=== PATIENT | male | born 1995 | race African-American/Black ===

== ENCOUNTER 2017-06-30 12:37 | Emergency (ER) | payer BC, MEDICAID ==
[2017-06-30 14:12] VITALS: BP 133/81
[2017-06-30 15:04] LABS: APPEARANCE,URINE CLEAR; BILIRUBIN,URINE NEGATIVE (NEGATIVE); COLOR,URINE STRAW; GLUCOSE, URINE NEGATIVE (NEGATIVE); KETONES,URINE NEGATIVE (NEGATIVE); LEUKOCYTE ESTERASE,URINE NEGATIVE (NEGATIVE); NITRITE,URINE NEGATIVE (NEGATIVE); PROTEIN,URINE NEGATIVE (NEGATIVE); URINE SPECIFIC GRAVITY 1.006; UROBILINOGEN,URINE NEGATIVE mg/dL (<2.0)
--- NOTE | 2017-06-30 15:42 | RADIOLOGY REPORT (SQ) ---
EXAM DESCRIPTION: U/S SCROTUM W/DOPPLER COMPLETED DATE/TIME: 06/30/2017 3:31 pm REASON FOR STUDY: left teste pain COMPARISON: None. TECHNIQUE: Static and realtime mendoza scale imaging of the scrotum and testes. Selected color Doppler and spectral images recorded to document blood flow. LIMITATIONS: None. FINDINGS: RIGHT: TESTICLE: Normal size. Normal echotexture. Normal blood flow. No mass. EPIDIDYMIS: Normal. HYDROCELE OR VARICOCELE: No. HERNIA OR EXTRA-TESTICULAR MASS: No. OTHER: No other significant finding. LEFT: TESTICLE: Normal size. Normal echotexture. Normal blood flow. No mass. EPIDIDYMIS: Normal. HYDROCELE OR VARICOCELE: No. HERNIA OR EXTRA-TESTICULAR MASS: No. OTHER: No other significant finding. IMPRESSION: NORMAL SCROTAL ULTRASOUND. NO EVIDENCE OF TESTICULAR MASS OR TORSION. TECHNICAL DOCUMENTATION: JOB ID: [id number] [employer]- All Rights Reserved
--- NOTE | 2017-06-30 16:01 | ER Document Report ---
ED GI/ - General Chief Complaint: Testicular Pain Stated Complaint: GENITAL PAIN Time Seen by Provider: 06/30/17 14:34 Mode of Arrival: Ambulatory Information source: Patient Notes: 21 yo normally healthy, wisdom teeth removed, uncircumscised, appendectomy male with pain and discomfort in left testicle since february, intermittent. Past few weeks has been constant associated with some numbness, the US done made it worse. NO penis problems. Pain does goes do up into the groin some. The testicle is hanging correctly. No injury. Not sexual active. No penis drainage. Ejaculation normal. Holding in the urine makes the pressure worse. No back pain. No hernia. TRAVEL OUTSIDE OF THE [place] IN LAST 30 DAYS: No Past Medical History - General Information source: Patient - Social History Smoking Status: Former Smoker Frequency of alcohol use: None Drug Abuse: None Lives with: Family Family History: Reviewed & Not Pertinent Patient has suicidal ideation: No Patient has homicidal ideation: No - Medical History Medical History: Negative Renal/ Medical History: Denies: Hx Peritoneal Dialysis Past Surgical History: Reports: Hx Appendectomy Review of Systems - Review of Systems Constitutional: No symptoms reported EENT: No symptoms reported Cardiovascular: No symptoms reported Respiratory: No symptoms reported Gastrointestinal: No symptoms reported Genitourinary: No symptoms reported Male Genitourinary: See HPI Musculoskeletal: No symptoms reported Skin: No symptoms reported Hematologic/Lymphatic: No symptoms reported Neurological/Psychological: No symptoms reported Physical Exam - Vital signs Vitals: Temp Pulse Resp BP Pulse Ox 98.3 F 65 15 133/81 H 100 06/30/17 12:58 06/30/17 12:58 06/30/17 12:58 06/30/17 12:58 06/30/17 12:58 Interpretation: Normal - General General appearance: Appears well, Alert - HEENT Head: Normocephalic, Atraumatic Eyes: Normal Pupils: PERRL Neck: Supple - Respiratory Respiratory status: No respiratory distress Chest status: Nontender Breath sounds: Normal Chest palpation: Normal - Cardiovascular Rhythm: Regular Heart sounds: Normal auscultation Murmur: No - Abdominal Inspection: Normal Distension: No distension Bowel sounds: Normal Tenderness: Nontender Organomegaly: No organomegaly - Genitourinary Inspection: Normal Tenderness: Other - tender in the left inquinal canal, no hernia. No: Testicle tender, Epididymis tender Cremasteric reflex: Normal Scrotum: Normal - Back Back: Normal, Nontender - Extremities General upper extremity: Normal inspection, Nontender, Normal color, Normal ROM , Normal temperature General lower extremity: Normal inspection, Nontender, Normal color, Normal ROM , Normal temperature, Normal weight bearing. No: Lakisha's sign - Neurological Neuro grossly intact: Yes Cognition: Normal Orientation: AAOx4 Tee Coma Scale Eye Opening: Spontaneous Carlton Coma Scale Verbal: Oriented Tee Coma Scale Motor: Obeys Commands Tee Coma Scale Total: 15 Speech: Normal Motor strength normal: LUE, RUE, LLE, RLE Sensory: Normal - Psychological Associated symptoms: Normal affect, Normal mood - Skin Skin Temperature: Warm Skin Moisture: Dry Skin Color: Normal Skin irregularity: negative: Rash Course - Re-evaluation Re-evalutation: 06/30/17 16:[address] gates. Send pt to urologist. the US and urine are negative. - Vital Signs Vital signs: Temp Pulse Resp BP Pulse Ox 98.3 F 65 15 133/81 H 100 06/30/17 12:58 06/30/17 12:58 06/30/17 12:58 06/30/17 12:58 06/30/17 12:58 Discharge - Discharge Clinical Impression: Orchitis, left, Left inguinal pain Condition: Good Disposition: HOME, SELF-CARE Instructions: Acetaminophen, Anti-Inflammatory Medication ([facility]), Testicular Pain ([facility]), Warm Packs ([facility]) Additional Instructions: tylenol and motrin for pain warm compress see urologist for follow up to er if worse Prescriptions: Ibuprofen [Motrin 600 mg Tablet] 600 mg PO Q8HP PRN #30 tablet PRN Reason: Referrals: JUAN LEAVITT MD [TANGELA CARDOZO] - Follow up in 1 week
== END 2017-06-30 16:04 | disposition home or self-care (01) ==
LOC: ER 12:37
DX: N45.2 Orchitis (principal); R10.32 Left lower quadrant pain; N50.812 Left testicular pain; R20.0 Anesthesia of skin; Z87.891 Personal history of nicotine dependence
CPT/HCPCS: 76870; 81001; 93976; 99284

== ENCOUNTER → 2017-11-11 | Outpatient (CLI) | payer BC ==
--- NOTE | 2017-11-11 11:00 | RADIOLOGY REPORT (SQ) ---
EXAM DESCRIPTION: HIP LEFT AP/LATERAL COMPLETED DATE/TIME: 11/11/2017 10:49 am REASON FOR STUDY: PAIN IN LEFT HIP M25.552 PAIN IN LEFT HIP COMPARISON: None. NUMBER OF VIEWS: Two views. TECHNIQUE: AP pelvis and additional frog-leg view of the left hip. LIMITATIONS: None. FINDINGS: MINERALIZATION: Normal. PRIMARY HIP: No fracture or dislocation. No worrisome bone lesions. OPPOSITE HIP: No fracture or dislocation. No worrisome bone lesions. PUBIS AND ISCHIUM: No fracture. PELVIS: No fracture. SACRUM: No fracture or dislocation. No worrisome bone lesions. LOWER LUMBAR SPINE: No fracture or dislocation. No worrisome bone lesions. No significant disc disea se. SOFT TISSUES: No findings. OTHER: No other significant finding. IMPRESSION: NEGATIVE STUDY OF THE LEFT HIP AND PELVIS. NO ACUTE POST-TRAUMATIC CHANGES. NO EXPLANAT ION FOR PAIN. TECHNICAL DOCUMENTATION: JOB ID: [id number] [employer] [place]- All Rights Reserved Reading location - IP/workstation name: [facility]
== END ==
LOC: OD 10:26
PROVIDERS: ATTEND Internal Medicine
DX: M25.552 Pain in left hip (principal)

== ENCOUNTER → 2019-06-22 | Outpatient (CLI) | payer BC ==
--- NOTE | 2019-06-22 13:48 | RADIOLOGY REPORT (SQ) ---
EXAM DESCRIPTION: SACROILIAC JOINTS COMPLETED DATE/TIME: 06/22/2019 12:30 pm REASON FOR STUDY: SACROILIITIS, NOT ELSEWHERE CLASSIFIED M46.1 SACROILIITIS, NOT ELSEWHERE CLASSIFI ED COMPARISON: None. NUMBER OF VIEWS: Three views. TECHNIQUE: AP and oblique views of the sacroiliac joints. LIMITATIONS: None. FINDINGS: MINERALIZATION: Normal. BONES: No acute fracture or dislocation. No worrisome bone lesions. No significant osteophytes. JOINTS: The sacroiliac joints are patent. No unusual widening, sclerosis, or fusion. SOFT TISSUES: No soft tissue swelling. No radio-opaque foreign body. OTHER: No other significant finding. IMPRESSION: NORMAL STUDY OF THE SACROILIAC JOINTS. TECHNICAL DOCUMENTATION: JOB ID: [id number]- All Rights Reserved Reading location - IP/workstation name: [email or web address]
== END ==
LOC: OD 12:14
PROVIDERS: ATTEND Internal Medicine
DX: M46.1 Sacroiliitis, not elsewhere classified (principal)
CPT/HCPCS: 72200